=== PATIENT | male | born 1935 | race Caucasian/White ===

== ENCOUNTER → 2017-05-20 | Outpatient (CLI) | payer MEDICARE ==
[~2017-05-20] MED LIST: AEC81 PO; ENAL10TA PO; ENAL20TA PO; GABA-531 PO; HYDR12.54 PO; HYDR25TA PO; OXYB5TAB10 PO; PANT40TA PO; PRAV20TA4 PO; PRAV80TA21 PO
[2017-05-20 11:33] LABS: CREATININE 0.9 mg/dL (0.5-1.5); POTASSIUM 4.1 mmol/L (3.5-5.1)
== END | disposition home or self-care (01) ==
LOC: LAB 10:47
PROVIDERS: ATTEND Internal Medicine Cardiovascular Disease
DX: I71.4 Abdominal aortic aneurysm, without rupture (principal)
CPT/HCPCS: 36415; 80048

== ENCOUNTER → 2017-05-23 | Outpatient (CLI) | payer MEDICARE ==
[~2017-05-23] MED LIST changes: +IOPAMIDOL-370 100 ML VIAL IV ONE
== END | disposition home or self-care (01) ==
LOC: OIH 08:46
PROVIDERS: ATTEND Internal Medicine Cardiovascular Disease
DX: I71.4 Abdominal aortic aneurysm, without rupture (principal); N28.1 Cyst of kidney, acquired; K57.90 Diverticulosis of intestine, part unspecified, without perforation or abscess without bleeding; M47.895 Other spondylosis, thoracolumbar region
CPT/HCPCS: 74174; Q9967

== ENCOUNTER → 2017-06-24 | Outpatient (CLI) | payer MEDICARE ==
[~2017-06-24] MED LIST changes: -IOPAMIDOL-370 100 ML VIAL IV ONE
== END | disposition home or self-care (01) ==
LOC: SHCH 09:41
PROVIDERS: ATTEND Internal Medicine Cardiovascular Disease
DX: I65.23 Occlusion and stenosis of bilateral carotid arteries (principal)
CPT/HCPCS: 93880

== ENCOUNTER 2017-08-08 10:00 | Inpatient (IN) | payer MEDICARE ==
[~2017-08-08] VITALS: Ht 168.9 cm; Wt 72.8 kg
[~2017-08-08 10:00] MED LIST changes: -AEC81 PO; -ENAL10TA PO; -ENAL20TA PO; -GABA-531 PO; -HYDR12.54 PO; -HYDR25TA PO; -OXYB5TAB10 PO; -PANT40TA PO; -PRAV80TA21 PO
[2017-08-08 11:30] LABS: BASOPHILS % (AUTO) 1.1 % (0.0-5.0); HEMATOCRIT 42.2 % (42-54); LYMPHOCYTES % (AUTO) 16.8 % (21.0-51.0); MEAN CORPUSCULAR HEMOGLOBIN 31.6 pg (27.0-33.0); MEAN CORPUSCULAR HGB CONC 34.4 g/dL (32.0-36.0); MEAN CORPUSCULAR VOLUME 91.9 fL (79-99); MONOCYTES % (AUTO) 10.6 % (3.0-13.0); NEUTROPHILS % (AUTO) 69.5 % (40.0-77.0); PLATELET COUNT (AUTO) 232 K/uL (130-400); RED CELL DISTRIBUTION WIDTH 14.1 % (11.0-15.5); WHITE BLOOD COUNT (AUTO) 6.2 K/uL (4.8-10.8)
[2017-08-08 11:33] VITALS: BP 162/91
[2017-08-08 11:37] LABS: CREATININE 0.9 mg/dL (0.5-1.5); POTASSIUM 4.8 mmol/L (3.5-5.1)
[2017-08-08 11:55] LABS: INR 1.07 (0.85-1.15); PARTIAL THROMBOPLASTIN TIME 30.6 SEC (26.3-35.5); PROTHROMBIN TIME 11.2 SEC (9.6-11.6)
[2017-08-08] MEDS ORDERED: HYDR12.54 PO (11:59)
[2017-08-08] MEDS ORDERED: OXYB5TAB10 PO (11:59)
[2017-08-08] MEDS ORDERED: ENAL20TA PO (11:59)
[2017-08-08] MEDS ORDERED: PANT40TA PO (11:59)
[2017-08-08] MEDS ORDERED: SODIUM CHLORIDE 0.9% 1000ML 1,000 ML IV SCH (15:15)
[2017-08-10] VITALS (15 sets, daily range): BP systolic 98–168; BP diastolic 53–99
[2017-08-10] MEDS ORDERED: ISOVUE-300 100 ML VIAL IV ONE (10:08)
[2017-08-10] MEDS ORDERED: HEPARIN SODIUM 1000UNIT/ML 10ML VIAL ONE (10:08)
[2017-08-10] MEDS ORDERED: SUCCINYLCHOLINE CHLORIDE 20 MG/ML 10 ML VIAL ONE (10:26)
[2017-08-10] MEDS ORDERED: EPHEDRINE SULFATE 50 MG/ML AMPULE ONE (10:26)
[2017-08-10] MEDS ORDERED: PROPOFOL 10 MG/ML 20ML VIAL IV ONE (10:26)
[2017-08-10] MEDS ORDERED: ONDANSETRON HCL 4 MG/2 ML VIAL ONE (10:26)
[2017-08-10] MEDS ORDERED: GLYCOPYRROLATE 0.2 MG/ML 5 ML VIAL ONE (10:26)
[2017-08-10] MEDS ORDERED: LIDOCAINE HCL 2% JELLY 5 ML ONE (10:26)
[2017-08-10] MEDS ORDERED: LIDOCAINE HCL MPF 1% 5ML VIAL ONE ×2 (10:26→10:27)
[2017-08-10] MEDS ORDERED: ROCURONIUM BROMIDE 10MG/1ML 5ML VL ONE ×3 (10:26→10:27)
[2017-08-10] MEDS ORDERED: DEXAMETHASONE SOD PHOSPHATE 10MG/ML 1ML VIAL ONE (10:26)
[2017-08-10] MEDS ORDERED: LIDOCAINE PF 2% 5ML ABBOJECT ONE ×2 (10:26→10:27)
[2017-08-10] MEDS ORDERED: FENTANYL CITRATE PF 50 MCG/1 ML 5ML AMP IV ONE (10:26)
[2017-08-10] MEDS ORDERED: LIDOCAINE HCL 4% LTA SOL 4 ML VIAL ONE (10:26)
[2017-08-10] MEDS ORDERED: NEOSTIGMINE 5MG/5ML SYR IV ONE (10:26)
[2017-08-10] MEDS ORDERED: MIDAZOLAM HCL 1 MG/ML 2ML VIAL ONE (10:26)
[2017-08-10] MEDS ORDERED: PHENYLEPHRINE HCL 10 MG/ML 1ML VIAL IV ONE (10:27)
[2017-08-10] MEDS ORDERED: CEFAZOLIN SODIUM 1 GM VIAL ONE (11:23)
[2017-08-10] MEDS ORDERED: ACETAMINOPHEN-CODEINE 300/30MG TAB PO PRN ×2 (13:15)
[2017-08-10] MEDS ORDERED: MORPHINE SULFATE 4 MG/1ML SYG IV PRN (13:15)
[2017-08-10] MEDS ORDERED: MORPHINE SULFATE 5 MG/ML VIAL IV PRN (13:15)
[2017-08-10] MEDS ORDERED: TEMAZEPAM 30 MG CAP PO PRN (13:15)
[2017-08-10] MEDS ORDERED: ACETAMINOPHEN 325 MG TAB PO PRN ×2 (13:15)
[2017-08-10] MEDS ORDERED: ONDANSETRON HCL MDV 20ML 2 MG/ML VIAL IV PRN (13:15)
[2017-08-10] MEDS: SODIUM CHLORIDE 0.9% 1000ML 1,000 ML IV SCH ×2 (14:30→21:20)
[2017-08-10] MEDS: CEFAZOLIN SODIUM 1 GM VIAL IVP SCH ×2 (14:34→22:06)
[2017-08-10] MEDS ORDERED: HYDRALAZINE HCL 20 MG/ML VIAL IV PRN (18:15)
[2017-08-10] MEDS: OXYBUTYNIN CHLORIDE 5 MG TABLET PO SCH (20:30)
[2017-08-10] MEDS: ENALAPRIL MALEATE 10 MG TABLET PO SCH (23:10)
[2017-08-11] VITALS (8 sets, daily range): BP systolic 107–156; BP diastolic 57–85
[2017-08-11 05:27] LABS: HEMATOCRIT 33.6 % (42-54); MEAN CORPUSCULAR HEMOGLOBIN 33.6 pg (27.0-33.0); MEAN CORPUSCULAR HGB CONC 36.8 g/dL (32.0-36.0); MEAN CORPUSCULAR VOLUME 91.3 fL (79-99); PLATELET COUNT (AUTO) 184 K/uL (130-400); RED BLOOD CELL COUNT(AUTO) 3.68 MIL/uL (4.50-6.20); RED CELL DISTRIBUTION WIDTH 14.1 % (11.0-15.5); WHITE BLOOD COUNT (AUTO) 9.2 K/uL (4.8-10.8)
[2017-08-11 05:32] LABS: CREATININE 0.8 mg/dL (0.5-1.5); POTASSIUM 3.9 mmol/L (3.5-5.1)
[2017-08-11] MEDS: OXYBUTYNIN CHLORIDE 5 MG TABLET PO SCH (08:40)
[2017-08-11] MEDS: ENALAPRIL MALEATE 10 MG TABLET PO SCH (08:52)
[2017-08-11] MEDS ORDERED: PANTOPRAZOLE SODIUM 40 MG TABLET.DR PO SCH (09:00)
[2017-08-11] MEDS ORDERED: HYDROCHLOROTHIAZIDE 25 MG TABLET PO SCH (09:00)
[2017-09-19] MEDS ORDERED: PRAV80TA21 PO (12:03)
== END 2017-08-11 13:50 | disposition home or self-care (01) | DRG 269 ==
LOC: EDSTATUS 10:00 → DAHIP 08-10 05:48 → 2CV 08-10 14:14 → 2CH 08-10 16:41
PROVIDERS: ADMIT Internal Medicine; ATTEND Internal Medicine
PROC: B4101ZZ Fluoroscopy of Abdominal Aorta using Low Osmolar Contrast (ICD-10-PCS; principal; 2017-08-10)
PROC: 04V03DZ Restriction of Abdominal Aorta with Intraluminal Device, Percutaneous Approach (ICD-10-PCS; 2017-08-10)
PROC: 047C3ZZ Dilation of Right Common Iliac Artery, Percutaneous Approach (ICD-10-PCS; 2017-08-10)
PROC: 047D3ZZ Dilation of Left Common Iliac Artery, Percutaneous Approach (ICD-10-PCS; 2017-08-10)
DX: I71.4 Abdominal aortic aneurysm, without rupture (principal); G62.9 Polyneuropathy, unspecified; I72.3 Aneurysm of iliac artery; I35.0 Nonrheumatic aortic (valve) stenosis; I65.29 Occlusion and stenosis of unspecified carotid artery; I73.9 Peripheral vascular disease, unspecified; E78.5 Hyperlipidemia, unspecified; I10 Essential (primary) hypertension; K21.9 Gastro-esophageal reflux disease without esophagitis; K44.9 Diaphragmatic hernia without obstruction or gangrene; Z87.891 Personal history of nicotine dependence; Z83.79 Family history of other diseases of the digestive system
CPT/HCPCS: 34705; 34713; 36415; 71045; 80048; 85025; 85027; 85347; 85610; 85730; 86850; 86900; 86901; 86922; 93005; A4218; A4344; C1725; C1760; C1769; C1887; C1894; J0330; J0360; J0690; J1100; J1644; J2001; J2250; J2270; J2370; J2405; J2704; J2710; J3010; J3490; J7030; Q9967

== ENCOUNTER → 2017-08-26 | Outpatient (CLI) | payer MEDICARE ==
[~2017-08-26] MED LIST changes: +AEC81 PO; +ENAL20TA PO; +HYDR12.54 PO; +ISOVUE-370 50ML VIAL IV ONE; +OXYB5TAB10 PO; +PANT40TA PO; +PRAV80TA21 PO
== END | disposition home or self-care (01) ==
LOC: OIH 10:29
PROVIDERS: ATTEND Internal Medicine Cardiovascular Disease
DX: I71.4 Abdominal aortic aneurysm, without rupture (principal); K57.30 Diverticulosis of large intestine without perforation or abscess without bleeding; N40.0 Benign prostatic hyperplasia without lower urinary tract symptoms; N28.1 Cyst of kidney, acquired; J43.9 Emphysema, unspecified
CPT/HCPCS: 74174; Q9967

== ENCOUNTER 2017-09-21 09:40 | Observation (INO) | payer MEDICARE ==
[2017-09-19 11:10] VITALS: BP 169/86
[2017-09-19 11:35] LABS: BASOPHILS % (AUTO) 0.5 % (0.0-5.0); EOSINOPHILS % (AUTO) 1.7 % (0.0-8.0); HEMATOCRIT 37.4 % (42-54); LYMPHOCYTES % (AUTO) 18.1 % (21.0-51.0); MEAN CORPUSCULAR HEMOGLOBIN 32.1 pg (27.0-33.0); MEAN CORPUSCULAR HGB CONC 35.1 g/dL (32.0-36.0); MEAN CORPUSCULAR VOLUME 91.3 fL (79-99); MONOCYTES % (AUTO) 9.8 % (3.0-13.0); NEUTROPHILS % (AUTO) 69.9 % (40.0-77.0); PLATELET COUNT (AUTO) 176 K/uL (130-400); WHITE BLOOD COUNT (AUTO) 6.1 K/uL (4.8-10.8)
[2017-09-19 11:36] LABS: APPEARANCE,URINE Clear (CLEAR); BILIRUBIN,URINE Negative (NEGATIVE); COLOR,URINE Yellow (YELLOW); GLUCOSE, URINE (UA) Negative (NEGATIVE); KETONES,URINE Negative (NEGATIVE); LEUKOCYTE ESTERASE ,URINE Negative (NEGATIVE); NITRATE,URINE Negative (NEGATIVE); OCCULT BLOOD,URINE Negative (NEGATIVE); PH,URINE 6.5 (5.0-8.0); PROTEIN,URINE Negative (NEGATIVE); UROBILINOGEN,URINE 0.2 mg/dL (0.2-1.0)
[2017-09-19 11:43] LABS: CREATININE 0.9 mg/dL (0.5-1.5)
[2017-09-19 11:49] LABS: INR 1.02 (0.85-1.15); PARTIAL THROMBOPLASTIN TIME 29.6 SEC (26.3-35.5); PROTHROMBIN TIME 10.7 SEC (9.6-11.6)
[2017-09-21] VITALS (10 sets, daily range): BP systolic 135–199; BP diastolic 74–96
[~2017-09-21] VITALS: Ht 170.2 cm; Wt 74.8 kg
[~2017-09-21 09:40] MED LIST changes: +ACETAMINOPHEN 325 MG TAB PO PRN; -AEC81 PO; -ISOVUE-370 50ML VIAL IV ONE; -PRAV20TA4 PO; +SODIUM CHLORIDE 0.9% 500ML 500 ML IV SCH
[2017-09-21] MEDS ORDERED: SODIUM CHLORIDE 0.9% 1000ML 1,000 ML IV ONE (10:06)
[2017-09-21] MEDS: HYDRALAZINE HCL 20 MG/ML VIAL IV SCH (10:45)
[2017-09-21] MEDS ORDERED: HEPARIN SODIUM 1000UNIT/ML 10ML VIAL ONE (13:21)
[2017-09-21] MEDS ORDERED: ISOVUE-300 100 ML VIAL IV ONE (13:21)
[2017-09-21] MEDS ORDERED: LIDOCAINE HCL 2% 20ML ONE (13:21)
[2017-09-21] MEDS ORDERED: NITROGLYCERIN 5 MG/ML 10 ML VIAL IV ONE (13:21)
[2017-09-21] MEDS ORDERED: SODIUM BICARB 50MEQ 50ML VIAL ONE (13:21)
[2017-09-21] MEDS ORDERED: HYDRALAZINE HCL 20 MG/ML VIAL ONE (14:15)
[2017-09-21] MEDS ORDERED: ASPIRIN 325MG EC TAB 325 MG TABLET.DR PO ONE (15:04)
[2017-09-21] MEDS ORDERED: SODIUM CHLORIDE 0.9% 1000ML 1,000 ML IV SCH (15:52)
[2017-09-21] MEDS ORDERED: AEC81 PO (15:56)
[2017-09-22 03:57] VITALS: BP 142/84
[2017-09-22 07:39] VITALS: BP 167/91
[2017-09-22] MEDS: HYDRALAZINE HCL 20 MG/ML VIAL IV SCH (10:15)
== END 2017-09-22 10:39 | disposition home or self-care (01) ==
LOC: DAH 09:40 → DAHIP 09:41 → DAH 09:41 → 2AH 16:30
PROVIDERS: ADMIT Internal Medicine Cardiovascular Disease; ATTEND Internal Medicine Cardiovascular Disease
DX: I73.9 Peripheral vascular disease, unspecified (principal); I71.4 Abdominal aortic aneurysm, without rupture; Z79.01 Long term (current) use of anticoagulants
CPT/HCPCS: 36415; 37221 ×2; 37223; 71045; 75625; 80048; 81003; 85025; 85347; 85610; 85730; 93005; 96374; A4606; C1760 ×2; C1769 ×2; C1876 ×3; C1894 ×6; G0378 ×25; J0360 ×2; J1644; J3490 ×3; J7030; Q9967

== ENCOUNTER → 2018-08-16 | Outpatient (CLI) | payer MEDICARE ==
[~2018-08-16] MED LIST changes: -ACETAMINOPHEN 325 MG TAB PO PRN; +AEC81 PO; -SODIUM CHLORIDE 0.9% 500ML 500 ML IV SCH
== END | disposition home or self-care (01) ==
LOC: SHCH 07:44
PROVIDERS: ATTEND Internal Medicine Cardiovascular Disease
DX: I65.23 Occlusion and stenosis of bilateral carotid arteries (principal); I71.4 Abdominal aortic aneurysm, without rupture
CPT/HCPCS: 93880; 93978